=== PATIENT | female | born 1955 | race African-American/Black ===

== ENCOUNTER 2016-11-04 23:19 | Inpatient (IN) | payer OTHER ==
[~2016-11-04] VITALS: Ht 152.4 cm; Wt 95.0 kg
--- NOTE | 2016-11-05 00:04 | ERA ---
ER Documentation Chief Complaint Date/Time DATE: 11/05/16 TIME: 00:03 Chief Complaint Wheezing with SOB HPI The patient is a 61-year-old female, presenting to the ER because of shortness of breath, intermittent cough for the last 3 weeks, worse today. She denies fever, chills, neck pain, chest pain, abdominal pain, vomiting, diarrhea, constipation, dysuria. She does not smoke, drink Past medical history: Asthma, hypertension Past surgical history: 2 , bilateral feet, left shoulder ROS All systems reviewed and are negative except as per history of present illness. Allergies Allergies: Coded Allergies: No Known Allergy (Unverified , 07/29/15) PMhx/Soc History of Surgery: Yes (,lexis , foot) Hx Alcohol Use: No Hx Substance Use: No Hx Tobacco Use: No Physical Exam Vitals Vital Signs Date Time Temp Pulse Resp B/P Pulse Ox O2 Delivery O2 Flow Rate FiO2 11/05/16 00:17 52 28 99 Nasal Cannula 2.0 11/05/16 00:17 99 2.0 11/05/16 00:05 98.3 57 26 154/87 97 Room Air 11/05/16 00:05 Nasal Cannula 4 11/05/16 00:05 Nasal Cannula 4.0 11/04/16 23:54 98.3 70 26 209/82 95 Physical Exam Const: No acute distress. Head: Atraumatic. Eyes: Normal Conjunctiva. ENT: Normal External Ears, Nose and Mouth. Neck: Full range of motion. No meningismus. Resp: Bilateral expiratory wheezes, tachypnea Cardio: Regular rate and rhythm, no murmurs. Abd: Soft, non distended, normal bowel sounds, non tender. Skin: No petechiae or rashes. Back: No midline or flank tenderness. Ext: No cyanosis, or edema. Neur: Awake and alert. No focal deficit Psych: Normal Mood and Affect. Result Diagram: 11/05/16 0015 11/05/16 0015 Results 24 hrs Laboratory Tests Test 11/05/16 00:15 Anion Gap 18 Basophils # 0.010^3/ul Basophils % 0.5% Blood Urea Nitrogen 16mg/dl Calcium Level 9.7mg/dl Carbon Dioxide Level 28mmol/L Chloride Level 103mmol/L Creatinine 0.76mg/dl Eosinophils # 0.210^3/ul Eosinophils % 3.4% Glucose Level 94mg/dl Hematocrit 41.0% Hemoglobin 13.8g/dl Lymphocytes # 1.910^3/ul Lymphocytes % 26.2% Mean Corpuscular Hemoglobin 29.7pg Mean Corpuscular Hemoglobin Concent 33.7g/dl Mean Corpuscular Volume 88.2fl Mean Platelet Volume 9.4fl Monocytes # 0.410^3/ul Monocytes % 5.5% Neutrophils # 4.710^3/ul Neutrophils % 64.4% Nucleated Red Blood Cells # 0.010^3/ul Nucleated Red Blood Cells % 0.0/100WBC Platelet Count 68417^3/UL Potassium Level 4.1mmol/L Red Blood Count 4.6410^6/ul Red Cell Distribution Width 12.9% Sodium Level 145mmol/L White Blood Count 7.410^3/ul Current Medications Medications (Trade) Dose Ordered Sig/Ander Route PRN Reason Start Time Stop Time Status Last Admin Dose Admin Levalbuterol (Xopenex Neb) 3.75 mg ONCE STAT INH 11/05/16 00:12 11/05/16 00:16 DC 11/05/16 00:17 Ipratropium [place] (Atrovent 0.02% (Neb)) 1.5 mg ONCE STAT INH 11/05/16 00:12 11/05/16 00:16 DC 11/05/16 00:17 Methylprednisolone Sodium Succinate 125 mg 125 mg ONCE STAT IV 11/05/16 00:12 11/05/16 00:16 DC 11/05/16 00:20 Magnesium Sulfate 50 ml @ 25 mls/hr ONCE ONCE IVPB 11/05/16 00:30 11/05/16 02:29 11/05/16 00:24 Levofloxacin/ Dextrose (Levaquin 750 Mg/ D5W 150 ml (Pmx)) 150 ml @ 100 mls/hr ONCE ONCE IVPB 11/05/16 02:00 11/05/16 03:29 Procedures/[place] [id number] Radiology Main Line: [phone] DIAGNOSTIC IMAGING REPORT Patient: JOSSE SOUZA : 1955 Age: 61 Sex: F MR #: [id number] DOS: 11/05/16 0012 Ordering MD: MARTÍN FRANCO MD Location: E/R Room/Bed: PROCEDURE: XR Chest. CLINICAL INDICATION: Asthma TECHNIQUE: AP Portable chest. COMPARISON: No pertinent prior examinations were submitted for comparison. FINDINGS: The cardiomediastinal silhouette is normal. The lungs are clear. The osseous structures are unremarkable. IMPRESSION: No acute findings. RPTAT: HIKT .Rishabh Voss MD, Date Time Electronically viewed and signed by .Rishabh Voss MD, MD on 11/05/2016 01:00 .T/ CC: MARTÍN FRANCO MD MEDICAL MAKING DECISION: The patient is a 61-year-old female, presenting with severe acute asthma exacerbation. She was treated with Xopenex 3.75 mg and Atrovent 1.5 mg continuous nebulizer over one hour, Solu-Medrol 125 mg IV, magnesium 2 g IV, Levaquin 750 mg IV with good response. However she remains tachypneic, wheezing and is not stable to be discharged. Her blood pressure improved Critical Care: Time: 35 minutes excluding all billable procedures. Treatments/Evaluations: Close monitoring and treatment of unstable vital signs, cardiorespiratory, and neurologic status, while maintaining tight balance of fluid, respiratory, and cardiac interventions. Departure Diagnosis: Primary Impression: Acute asthma exacerbation Condition: Stable Comments I discussed the findings with the patient. I discussed the patient with the hospitalist Dr. Ayala who was made aware of the lab, the treatment, the patient condition. The patient is admitted to telemetry at 1:30 AM MARTÍN FRANCO MD Nov 05, 2016 00:03
[2016-11-05] MEDS ORDERED: METHYLPREDNISOLONE 125 MG INJ IV STA (00:12)
[2016-11-05] MEDS ORDERED: LEVALBUTEROL (NEB) 1.25 MG/0.5 ML AMP INH STA (00:12)
[2016-11-05] MEDS ORDERED: IPRATROPIUM (NEB) 0.5 MG/2.5 ML AMP INH STA (00:12)
[2016-11-05] MEDS ORDERED: MAGNESIUM SULFATE 2 GM/50 ML 50 ML IVPB ONE (00:30)
--- NOTE | 2016-11-05 01:01 | RADRPT ---
PROCEDURE: XR Chest. CLINICAL INDICATION: Asthma TECHNIQUE: AP Portable chest. COMPARISON: No pertinent prior examinations were submitted for comparison. FINDINGS: The cardiomediastinal silhouette is normal. The lungs are clear. The osseous structures are unrema rkable. IMPRESSION: No acute findings. RPTAT: HIKT .Rishabh Voss MD, MD Date Time Electronically viewed and signed by .Rishabh Voss MD, MD on 11/05/2016 01:00 .T/
[2016-11-05 01:10] LABS: POTASSIUM 4.1 mmol/L (3.5-5.1)
[2016-11-05 01:12] LABS: BASOPHILS % 0.5 % (0.0-2.0); EOSINOPHILS # 0.2 10^3/ul (0.0-0.5); EOSINOPHILS % 3.4 % (0.0-7.0); HEMOGLOBIN 13.8 g/dl (12.0-16.0); LYMPHOCYTES # 1.9 10^3/ul (0.8-2.9); LYMPHOCYTES % 26.2 % (15.0-51.0); MEAN CORPUSCULAR HEMOGLOBIN 29.7 pg (29.0-33.0); MEAN CORPUSCULAR HGB CONC 33.7 g/dl (32.0-37.0); MEAN CORPUSCULAR VOLUME 88.2 fl (82.0-101.0); MEAN PLATELET VOLUME 9.4 fl (7.4-10.4); MONOCYTE # 0.4 10^3/ul (0.3-0.9); MONOCYTES % 5.5 % (0.0-11.0); NEUTROPHIL # 4.7 10^3/ul (1.6-7.5); NEUTROPHILS % 64.4 % (39.0-77.0); PLATELET COUNT 225 10^3/UL (140-440); RED BLOOD COUNT 4.64 10^6/ul (4.20-5.40); RED CELL DISTRIBUTION WIDTH 12.9 % (11.5-14.5); UNCORRECTED WBC 7.4 10^3/ul (4.8-10.8); WHITE BLOOD COUNT 7.4 10^3/ul (4.8-10.8)
[2016-11-05 01:13] LABS: CREATININE 0.76 mg/dl (0.44-1.00)
[2016-11-05 01:14] LABS: CALCIUM 9.7 mg/dl (8.4-10.2)
[2016-11-05 01:15] LABS: CONDITION 1
[2016-11-05] MEDS ORDERED: LEVOFLOXACIN 750MG/D5W (PMX) 150 ML IVPB ONE (02:00)
--- NOTE | 2016-11-05 02:17 | HP ---
Date/Time of Note Date/Time of Note DATE: 11/05/16 TIME: 02:09 Assessment/Plan VTE Prophylaxis VTE Prophylaxis Intervention: LMWH Assessment/Plan Assessment/Plan 61 yo female with past medical history of asthma - moderate persistent, essential hypertension, obesity who presents with worsening shortness of breath. 1. Acute asthma exacerbation - moderate persistent type - will admit the patient to telemetry, continue with duonebs scheduled/prn, po steroids, IV antibiotics, if worsening - consider pulm consult/CT chest 2. Essential Hypertension - continue with home medications, prn hydralazine for SBP >160 3. Gi ppx - pepcid 4. DVT ppx - lovenox answered all of her questions. as per clinical course. this history and physical took greater then 45 minutes to complete HPI/ROS Admit Date/Time Admit Date/Time 11/05/2016, 2:09 am Hx of Present Illness 61 yo female with past medical history of asthma - moderate persistent, essential hypertension, obesity who presents with worsening shortness of breath. She states that since her trip to [place], she has been having worsening shortness of breath in Jun 2016. Otherwise in the last couple of days, her asthma has been flaring up, requiring increased scheduled use of her rescue inhaler, along with her inhaled corticosteroids. She came to the ED here at [facility] for further evaluation and treatment. She complains of pleuritic chest pain, greenish sputum production, soft stools and fevers with chills. Denies any sick contacts, nausea/vomiting, cardiac chest pain, loss of consciousness, headaches, urinary/bowel irregularities or dizziness. No other constitutional symptoms. ED course: Mag IV, duonebs, supplemental O2, IV antibiotics ROS 14 point review of systems completed, please refer to HPI for any positive findings PMH/Family/Social Past Medical History asthma Medical History: hypertension Past Surgical History , right foot surgery x 3 Past Surgical Hx: cholecystectomy Family History Significant Family History: diabetes (sister), other (sarcoidosis/emphysema - other sister) Social History Alcohol Use: occasionally Smoking Status: Former smoker Drug Use: none Exam/Review of Systems Vital Signs Vitals Vital Signs Date Time Temp Pulse Resp B/P Pulse Ox O2 Delivery O2 Flow Rate FiO2 11/05/16 00:17 52 28 99 Nasal Cannula 2.0 11/05/16 00:05 98.3 154/87 Exam Exam Gen Nena: mild to moderate respiratory distress, AAOx4 HEENT: NC/AT, PERRLA, EOMI, no pharyngeal erythema, no tonsillar exudates, no lymphadenopathy, no JVD, no carotid bruits NECK: supple, no thyromegaly THORAX: symmetrical, no obvious deformities CV: S1S2, RRR, no M/G/R Lungs: scattered end expiratory wheezing, no crackles or rhonchi appreciated Abd: soft, NT/ND, +BS, no rebound, no guarding, neg HSM, protuberant EXT: no edema, no ecchymosis, no clubbing, FROM Neuro: CN II-XII grossly intact, no focal deficits Psych: good mentation, alert and oriented, good mood and affect Skin: C/D/I Labs Result Diagram: 11/05/161411/05/1614 Medications Medications Current Medications Magnesium Sulfate 50 ml @ 25 mls/hr ONCE ONCE IVPB Last administered on t 00:24; Admin Dose 25 MLS/HR; Start 11/05/16 at 00:30; Stop 11/05/16 at 02: 29 Levofloxacin/ Dextrose (Levaquin 750 Mg/ D5W 150 ml (Pmx)) 150 ml @ 100 mls/hr ONCE ONCE IVPB ; Start 11/05/16 at 02:00; Stop 11/05/16 at 03:29 Procedures Procedures CXR IMPRESSION: No acute findings. WILMAR MCFARLAND MD Nov 05, 2016 02:17
[2016-11-05] MEDS ORDERED: LORAZEPAM 2 MG INJ IV PRN (02:30)
[2016-11-05] MEDS ORDERED: NITROGLYCERIN (SL) 0.4 MG TAB SL PRN (02:30)
[2016-11-05] MEDS ORDERED: NACL 0.9% 3 ML SYG IV SCH (02:30)
[2016-11-05] MEDS ORDERED: morphine 2 MG INJ IV PRN (02:30)
[2016-11-05] MEDS ORDERED: ALBUTEROL/IPRATROPIUM (NEB) 3 ML AMP HHN PRN (02:30)
[2016-11-05 04:15] LABS: BASOPHILS % 0.1 % (0.0-2.0); CHOL/HDL RATIO 3.8 RATIO; CONDITION 1; EOSINOPHILS % 0.2 % (0.0-7.0); HEMATOCRIT 39.8 % (37.0-47.0); HEMOGLOBIN 13.3 g/dl (12.0-16.0); LYMPHOCYTES # 0.7 10^3/ul (0.8-2.9); LYMPHOCYTES % 8.3 % (15.0-51.0); MAGNESIUM 2.3 mg/dl (1.7-2.5); MEAN CORPUSCULAR HEMOGLOBIN 29.7 pg (29.0-33.0); MEAN CORPUSCULAR HGB CONC 33.4 g/dl (32.0-37.0); MEAN CORPUSCULAR VOLUME 88.9 fl (82.0-101.0); MEAN PLATELET VOLUME 8.6 fl (7.4-10.4); MONOCYTE # 0.1 10^3/ul (0.3-0.9); MONOCYTES % 1.4 % (0.0-11.0); NEUTROPHIL # 7.2 10^3/ul (1.6-7.5); PLATELET COUNT 209 10^3/UL (140-440); RED BLOOD COUNT 4.48 10^6/ul (4.20-5.40); RED CELL DISTRIBUTION WIDTH 12.6 % (11.5-14.5)
[2016-11-05 04:36] LABS: POTASSIUM 4.2 mmol/L (3.5-5.1)
[2016-11-05 04:39] LABS: CREATININE 0.75 mg/dl (0.44-1.00)
[2016-11-05 04:40] LABS: CALCIUM 9.6 mg/dl (8.4-10.2)
[2016-11-05] MEDS: ALBUTEROL/IPRATROPIUM (NEB) 3 ML AMP HHN SCH ×5 (04:40→21:00)
[2016-11-05 04:45] LABS: THYROID STIMULATING HORMONE 0.452 MIU/L (0.465-4.680)
[2016-11-05 04:55] LABS: PLATELET ESTIMATE PLT APPEAR ADEQUATE
[2016-11-05] MEDS ORDERED: BENA1TAB13 PO (07:01)
[2016-11-05] MEDS ORDERED: IBUP-1542 PO (07:02)
[2016-11-05] MEDS ORDERED: ALBU8.5H3 INH (07:02)
[2016-11-05] MEDS ORDERED: ATEN-51 PO (07:02)
[2016-11-05] MEDS ORDERED: BECL8.7A5 INH (07:03)
[2016-11-05] MEDS ORDERED: predniSONE 20 MG TAB PO SCH (09:00)
[2016-11-05] MEDS: FAMOTIDINE 20 MG TAB PO SCH ×2 (09:17→21:50)
[2016-11-05] MEDS: ENOXAPARIN 40 MG/0.4 ML SYG SC SCH (09:18)
[2016-11-05] MEDS: hydrALAzine 20 MG INJ IV PRN ×2 (09:18→16:38)
[2016-11-05] MEDS: ACETAMINOPHEN 325 MG TAB PO PRN ×2 (11:01→21:47)
[2016-11-05 16:25] VITALS: TEMP 98.3
--- NOTE | 2016-11-05 16:41 | PN ---
Date/Time of Note Date/Time of Note DATE: 11/05/16 TIME: 16:37 Assessment/Plan VTE Prophylaxis VTE Prophylaxis Intervention: LMWH Assessment/Plan Chief Complaint/Hosp Course Assessment and plan: 1. Acute asthma exacerbation - moderate persistent type - continue with duonebs scheduled/prn, po steroids, IV antibiotics, if worsening - consider pulm consult/CT chest 2. Essential Hypertension - continue with home medications, prn hydralazine for SBP >160 3. Gi ppx - pepcid 4. DVT ppx - lovenox We will continue monitor patient closely for recommendation management treatment as clinical course Problems: Subjective 24 Hr Interval Summary Free Text/Dictation Patient complains of having mild shortness of breath and headache Denies any chest pain Exam/Review of Systems Vital Signs Vitals Vital Signs Date Time Temp Pulse Resp B/P Pulse Ox O2 Delivery O2 Flow Rate FiO2 11/05/16 09:47 73 24 97 Nasal Cannula 2.0 11/05/16 09:00 98.3 186/97 11/05/16 04:40 28 Exam General: The patient is moderately overweight, Not in acute distress. HEENT: Atraumatic, normocephalic. The pupils are equal and round . Neck: Supple with full range of motion. Chest: Normal expansion of the thorax during inspiration Lungs: Minimal wheezing right upper lung field, no wheezing or rales Heart: Normal S1-S2, Regular rhythm and rate. Abdomen: Soft , nontender, nondistended , bowel sounds are present. Extremities: Normal to inspection, no edema no cyanosis Neurologic: Normal mental status,The patient is awake, alert and oriented . Results Result Diagram: 11/05/16 0342 11/05/16 0342 Results 24 hrs Laboratory Tests Test 11/05/16 00:15 11/05/16 03:42 Anion Gap 18 H 18 H Basophils # 0.0 0.0 Basophils % 0.5 0.1 Blood Urea Nitrogen 16 15 Calcium Level 9.7 9.6 Carbon Dioxide Level 28 28 Chloride Level 103 104 Creatinine 0.76 0.75 Eosinophils # 0.2 0.0 Eosinophils % 3.4 0.2 Glucose Level 94 139 # Hematocrit 41.0 39.8 Hemoglobin 13.8 13.3 Lymphocytes # 1.9 0.7 L Lymphocytes % 26.2 8.3 L Mean Corpuscular Hemoglobin 29.7 29.7 Mean Corpuscular Hemoglobin Concent 33.7 33.4 Mean Corpuscular Volume 88.2 88.9 Mean Platelet Volume 9.4 8.6 Monocytes # 0.4 0.1 L Monocytes % 5.5 1.4 Neutrophils # 4.7 7.2 Neutrophils % 64.4 90.0 H Nucleated Red Blood Cells # 0.0 0.0 Nucleated Red Blood Cells % 0.0 0.0 Platelet Count 225 209 Potassium Level 4.1 4.2 Red Blood Count 4.64 4.48 Red Cell Distribution Width 12.9 12.6 Sodium Level 145 H 146 H White Blood Count 7.4 8.0 Cholesterol Level 169 Cholesterol/HDL Ratio 3.8 HDL Cholesterol 44 Hemoglobin A1c 6.2 H LDL Cholesterol, Calculated 110 Magnesium Level 2.3 Platelet Estimate PLT APPEAR ADEQUATE Thyroid Stimulating Hormone (TSH) 0.452 L Triglycerides Level 77 Medications Medications Current Medications Lorazepam (Ativan) 0.5 mg Q6H PRN IV ANXIETY; Start 11/05/16 at 02:30 Ondansetron HCl (Zofran Inj) 4 mg Q6H PRN IV NAUSEA AND/OR VOMITING; Start at 02:30 Nitroglycerin (Nitroglycerin (Sl Tab) 0.4 Mg) 1 tab Q5M PRN SL CHEST PAIN; Start 11/05/16 at 02:30 Acetaminophen (Tylenol Tab) 650 mg Q6H PRN PO PAIN LEVEL 1-3 OR FEVER Last administered on 11/05/16 11:01; Admin Dose 650 MG; Start 11/05/16 at 02:30 Morphine Sulfate (morphine) 2 mg Q4H PRN IV PAIN LEVEL 7-10; Start 11/05/16 at 02:30 Docusate Sodium (Colace) 100 mg Q12H PRN PO CONSTIPATION; Start 11/05/16 at 02: 30 Famotidine (Pepcid) 20 mg Q12 PO Last administered on 11/05/16 09:17; Admin Dose 20 MG; Start 11/05/16 at 09:00 Enoxaparin Sodium (Lovenox) 40 mg DAILY SC Last administered on 11/05/16 09:18 ; Admin Dose 40 MG; Start 11/05/16 at 09:00 Levofloxacin (Levaquin) 500 mg DAILY@06 PO ; Start 11/06/16 at 06:00 Hydralazine HCl (Apresoline) 10 mg Q6H PRN IV sbp >160 Last administered on t 09:18; Admin Dose 10 MG; Start 11/05/16 at 02:30 Prednisone (Prednisone) 40 mg BID PO ; Start 11/05/16 at 21:00; Status UNV Albuterol (Ventolin Hfa) 2 puff Q6H PRN INH WHEEZING AND SOB; Start 11/05/16 at 17:00; Status UNV Atenolol (Tenormin) 12.5 mg DAILY PO ; Start 11/05/16 at 17:00; Status UNV Miscellaneous Information 2 puff BID PRN INH WHEEZING AND SOB; Start 11/05/16 at 17:00; Status UNV Miscellaneous Information 0.05 tab DAILY PO ; Start 11/05/16 at 17:00; Status UNV MARJORIE ZHAO MD Nov 05, 2016 16:41
[2016-11-05] MEDS ORDERED: MOMETASONE NASAL PRN (17:00)
[2016-11-05] MEDS ORDERED: hydrALAzine 20 MG INJ IV PRN (17:00)
[2016-11-05] MEDS ORDERED: ALBUTEROL HFA 8 GM INHALER INH PRN (17:00)
[2016-11-05] MEDS: DOCUSATE SODIUM 100 MG CAP PO PRN (17:08)
[2016-11-05] MEDS: LEVOFLOXACIN 500 MG TAB PO SCH (17:08)
[2016-11-05] MEDS: ATENOLOL 25 MG TAB PO SCH (17:09)
[2016-11-05] MEDS: ONDANSETRON 4 MG INJ IV PRN ×2 (17:57→21:00)
[2016-11-05] MEDS: BENAZEPRIL 20 MG TAB PO SCH (21:50)
[2016-11-05] MEDS: predniSONE 20 MG TAB PO SCH (21:51)
[2016-11-05] MEDS: HYDROCHLOROTHIAZIDE 12.5 MG CAP PO SCH (21:51)
[2016-11-05 23:41] VITALS: PULSE 75
[2016-11-06] VITALS (10 sets, daily range): BP systolic 134–139; BP diastolic 65–74; PULSE 45–63; RESP 17–18; Ht 152.4 cm; Wt 95.0 kg
[2016-11-06] MEDS: ALBUTEROL/IPRATROPIUM (NEB) 3 ML AMP HHN SCH ×6 (00:42→20:44)
[2016-11-06] MEDS: hydrALAzine 20 MG INJ IV PRN (00:54)
[2016-11-06] MEDS: BENAZEPRIL 20 MG TAB PO SCH ×2 (08:59→20:34)
[2016-11-06] MEDS: FAMOTIDINE 20 MG TAB PO SCH ×2 (08:59→20:33)
[2016-11-06] MEDS: HYDROCHLOROTHIAZIDE 12.5 MG CAP PO SCH (08:59)
[2016-11-06] MEDS: predniSONE 20 MG TAB PO SCH ×2 (09:00→20:33)
[2016-11-06] MEDS: ATENOLOL 25 MG TAB PO SCH (09:00)
[2016-11-06] MEDS: ENOXAPARIN 40 MG/0.4 ML SYG SC SCH (09:07)
[2016-11-06] MEDS: ACETAMINOPHEN 325 MG TAB PO PRN ×2 (09:11→20:34)
[2016-11-06 10:26] LABS: BASOPHILS % 0.3 % (0.0-2.0); HEMATOCRIT 40.9 % (37.0-47.0); HEMOGLOBIN 13.7 g/dl (12.0-16.0); LYMPHOCYTES % 14.2 % (15.0-51.0); MEAN CORPUSCULAR HEMOGLOBIN 29.5 pg (29.0-33.0); MEAN CORPUSCULAR HGB CONC 33.6 g/dl (32.0-37.0); MEAN CORPUSCULAR VOLUME 87.9 fl (82.0-101.0); MEAN PLATELET VOLUME 8.9 fl (7.4-10.4); MONOCYTE # 0.8 10^3/ul (0.3-0.9); MONOCYTES % 11.6 % (0.0-11.0); NEUTROPHILS % 73.9 % (39.0-77.0); PLATELET COUNT 225 10^3/UL (140-440); RED BLOOD COUNT 4.65 10^6/ul (4.20-5.40); RED CELL DISTRIBUTION WIDTH 13.2 % (11.5-14.5); UNCORRECTED WBC 6.8 10^3/ul (4.8-10.8); WHITE BLOOD COUNT 6.8 10^3/ul (4.8-10.8)
[2016-11-06 10:29] LABS: POTASSIUM 3.9 mmol/L (3.5-5.1)
[2016-11-06 10:31] LABS: CREATININE 0.83 mg/dl (0.44-1.00)
[2016-11-06 10:32] LABS: CALCIUM 9.9 mg/dl (8.4-10.2)
[2016-11-06 10:53] LABS: CONDITION 1
[2016-11-06] MEDS ORDERED: FUROSEMIDE 40 MG INJ IV ONE (12:00)
--- NOTE | 2016-11-06 14:57 | PN ---
Date/Time of Note Date/Time of Note DATE: 11/06/16 TIME: 14:56 Assessment/Plan VTE Prophylaxis VTE Prophylaxis Intervention: LMWH Lines/Catheters IV [facility] Saline Lock Urinary Cath still in place: No Assessment/Plan Chief Complaint/Hosp Course Assessment and plan: 1. Acute asthma exacerbation - moderate persistent type - continue with duonebs scheduled/prn, po steroids, IV antibiotics, likely secondary to upper respiratory tract infection 2. Essential Hypertension - continue with home medications, prn hydralazine for SBP >160 3. Upper respiratory tract infection-on Levaquin 4. Gi ppx - pepcid 5. DVT ppx - lovenox We will continue monitor patient closely for recommendation management treatment as clinical course Problems: Subjective 24 Hr Interval Summary Free Text/Dictation Patient complains of having cough and congestion Also complaining of having lower extremity edema No nausea vomiting diarrhea Tolerating oral intake Exam/Review of Systems Vital Signs Vitals Vital Signs Date Time Temp Pulse Resp B/P Pulse Ox O2 Delivery O2 Flow Rate FiO2 11/06/16 13:17 72 22 95 Nasal Cannula 2.0 21 11/06/16 12:00 98.5 139/74 Intake and Output 11/05/16 11/05/16 11/06/16 15:00 23:00 07:00 Intake Total 500 ml Output Total 500 ml Balance 0 ml Exam General: The patient is well-developed, Not in acute distress. Frequent cough HEENT: Atraumatic, normocephalic. The pupils are equal and round . Neck: Supple with full range of motion. Chest: Normal expansion of the thorax during inspiration Lungs: Clear to auscultation bilaterally Heart: Normal S1-S2, Regular rhythm and rate. Abdomen: Soft , nontender, nondistended , bowel sounds are present. Extremities: Normal to inspection, +1 edema no cyanosis Neurologic: Normal mental status,The patient is awake, alert and oriented . Results Result Diagram: 11/06/1659 11/06/1659 Results 24 hrs Laboratory Tests Test 11/06/16 09:59 Anion Gap 20 H Basophils # 0.0 Basophils % 0.3 Blood Urea Nitrogen 14 Calcium Level 9.9 Carbon Dioxide Level 27 Chloride Level 99 Creatinine 0.83 Eosinophils # 0.0 Eosinophils % 0.0 Glucose Level 130 Hematocrit 40.9 Hemoglobin 13.7 Lymphocytes # 1.0 Lymphocytes % 14.2 L Magnesium Level 2.0 Mean Corpuscular Hemoglobin 29.5 Mean Corpuscular Hemoglobin Concent 33.6 Mean Corpuscular Volume 87.9 Mean Platelet Volume 8.9 Monocytes # 0.8 Monocytes % 11.6 H Neutrophils # 5.0 Neutrophils % 73.9 Nucleated Red Blood Cells # 0.0 Nucleated Red Blood Cells % 0.0 Platelet Count 225 Potassium Level 3.9 Red Blood Count 4.65 Red Cell Distribution Width 13.2 Sodium Level 142 White Blood Count 6.8 Medications Medications Current Medications Lorazepam (Ativan) 0.5 mg Q6H PRN IV ANXIETY Last administered on 11/05/16 18: 32; Admin Dose 0.5 MG; Start 11/05/16 at 02:30 Ondansetron HCl (Zofran Inj) 4 mg Q6H PRN IV NAUSEA AND/OR VOMITING Last administered on 11/05/16 21:00; Admin Dose 4 MG; Start 11/05/16 at 02:30 Nitroglycerin (Nitroglycerin (Sl Tab) 0.4 Mg) 1 tab Q5M PRN SL CHEST PAIN; Start 11/05/16 at 02:30 Acetaminophen (Tylenol Tab) 650 mg Q6H PRN PO PAIN LEVEL 1-3 OR FEVER Last administered on 11/06/16 09:11; Admin Dose 650 MG; Start 11/05/16 at 02:30 Morphine Sulfate (morphine) 2 mg Q4H PRN IV PAIN LEVEL 7-10; Start 11/05/16 at 02:30 Docusate Sodium (Colace) 100 mg Q12H PRN PO CONSTIPATION Last administered on 17:08; Admin Dose 100 MG; Start 11/05/16 at 02:30 Famotidine (Pepcid) 20 mg Q12 PO Last administered on 11/06/16 08:59; Admin Dose 20 MG; Start 11/05/16 at 09:00 Enoxaparin Sodium (Lovenox) 40 mg DAILY SC Last administered on 11/06/16 09:07 ; Admin Dose 40 MG; Start 11/05/16 at 09:00 Levofloxacin (Levaquin) 500 mg DAILY@06 PO Last administered on 11/05/16 17:08 ; Admin Dose 500 MG; Start 1/14/17 at 06:00 Hydralazine HCl (Apresoline) 10 mg Q6H PRN IV sbp >160 Last administered on 00:54; Admin Dose 10 MG; Start 11/05/16 at 02:30 Prednisone (Prednisone) 40 mg BID PO Last administered on 11/06/16 09:00; Admin Dose 40 MG; Start 11/05/16 at 21:00 Albuterol (Ventolin Hfa) 2 puff Q6H PRN INH WHEEZING AND SOB; Start 11/05/16 at 17:00 Mometasone Furoate (Nasonex) 1 spray DAILY PRN NASAL WHEEZING AND SOB; Start at 17:00 Benazepril HCl (Lotensin) 20 mg DAILY PO Last administered on 11/06/16 08:59; Admin Dose 20 MG; Start 11/05/16 at 17:00 Hydralazine HCl (Apresoline) 10 mg Q6H PRN IV ELEVATED BLOOD PRESSURE; Start at 17:00 Hydrochlorothiazide (Hydrochlorothiazide) 12.5 mg DAILY PO Last administered on 11/06/16 08:59; Admin Dose 12.5 MG; Start 11/05/16 at 17:00 MARJORIE ZHAO MD Nov 06, 2016 14:57
[2016-11-06] MEDS: GUAIFENESIN LA 600 MG TABSR PO SCH ×2 (16:00→20:33)
[2016-11-06] MEDS: FUROSEMIDE 20 MG INJ IV SCH (17:30)
[2016-11-06] MEDS: DOCUSATE SODIUM 100 MG CAP PO PRN (21:36)
[2016-11-07] VITALS (8 sets, daily range): BP systolic 115–128; BP diastolic 67–76; PULSE 58–69; RESP 18
[2016-11-07] MEDS: ALBUTEROL/IPRATROPIUM (NEB) 3 ML AMP HHN SCH ×5 (00:44→16:53)
[2016-11-07] MEDS: FUROSEMIDE 20 MG INJ IV SCH (08:11)
[2016-11-07] MEDS: LEVOFLOXACIN 500 MG TAB PO SCH (08:11)
[2016-11-07] MEDS: HYDROCHLOROTHIAZIDE 12.5 MG CAP PO SCH (08:12)
[2016-11-07] MEDS: predniSONE 20 MG TAB PO SCH (08:12)
[2016-11-07] MEDS: GUAIFENESIN LA 600 MG TABSR PO SCH (08:12)
[2016-11-07] MEDS: FAMOTIDINE 20 MG TAB PO SCH (08:12)
[2016-11-07] MEDS: BENAZEPRIL 20 MG TAB PO SCH (08:12)
[2016-11-07] MEDS: ENOXAPARIN 40 MG/0.4 ML SYG SC SCH (08:22)
[2016-11-07 10:27] LABS: BASOPHILS % 0.2 % (0.0-2.0); HEMATOCRIT 45.3 % (37.0-47.0); HEMOGLOBIN 15.2 g/dl (12.0-16.0); LYMPHOCYTES # 1.3 10^3/ul (0.8-2.9); LYMPHOCYTES % 22.4 % (15.0-51.0); MEAN CORPUSCULAR HEMOGLOBIN 29.6 pg (29.0-33.0); MEAN CORPUSCULAR HGB CONC 33.5 g/dl (32.0-37.0); MEAN CORPUSCULAR VOLUME 88.4 fl (82.0-101.0); MONOCYTE # 0.5 10^3/ul (0.3-0.9); MONOCYTES % 9.3 % (0.0-11.0); NEUTROPHILS % 68.1 % (39.0-77.0); PLATELET COUNT 239 10^3/UL (140-440); RED BLOOD COUNT 5.12 10^6/ul (4.20-5.40); RED CELL DISTRIBUTION WIDTH 12.9 % (11.5-14.5); UNCORRECTED WBC 5.8 10^3/ul (4.8-10.8); WHITE BLOOD COUNT 5.8 10^3/ul (4.8-10.8)
[2016-11-07 10:29] LABS: CONDITION 1
[2016-11-07 10:39] LABS: POTASSIUM 3.5 mmol/L (3.5-5.1)
[2016-11-07 10:41] LABS: CREATININE 0.85 mg/dl (0.44-1.00)
[2016-11-07 10:42] LABS: CALCIUM 9.7 mg/dl (8.4-10.2)
--- NOTE | 2016-11-07 12:43 | PDOCDIS ---
Discharge Instructions CONDITION Patient Condition: Good HOME CARE INSTRUCTIONS: Diet Instructions: Low Fat /Cholesterol ACTIVITY: Activity Restrictions: Slowly Increase Activity Rest between Activity Avoid heavy lifting FOLLOW UP/APPOINTMENTS Appointments Follow up with PCP in one week MARJORIE ZHAO MD Nov 07, 2016 12:43
[2016-11-07] MEDS ORDERED: HYDR12.53 PO (12:46)
[2016-11-07] MEDS ORDERED: POLY17PO6 PO (12:46)
[2016-11-07] MEDS ORDERED: DOCU-144 PO (12:46)
[2016-11-07] MEDS ORDERED: BENA20TA48 PO (12:46)
[2016-11-07] MEDS ORDERED: LEVO500T72 PO (12:46)
[2016-11-07] MEDS ORDERED: PRED10TA PO (12:46)
[2016-11-07] MEDS ORDERED: UDROBAC PO (12:46)
[2016-11-07] MEDS ORDERED: IPRA4AER INHALATION (12:47)
--- NOTE | 2016-11-09 06:26 | DS ---
DATE OF ADMISSION: 11/05/2016 DATE OF DISCHARGE: 11/07/2016 PROCESS PLANT OPERATOR: None. DISCHARGE DIAGNOSES: 1. Acute asthma exacerbation. 2. Essential hypertension. 3. Upper respiratory tract infection. 4. Chronic constipation. MEDICATIONS: 1. Combivent. 2. Benazepril 20 mg p.o. b.i.d. 3. Colace 100 mg p.o. daily p.r.n. 4. Robitussin-AC 5 mL p.o. q.4-6h p.r.n. 5. Hydrochlorothiazide 12.5 mg p.o. daily. 6. Levaquin 500 mg p.o. daily. 7. MiraLax 17 grams. 8. Prednisone 10 mg p.o. daily x7 days. 9. ProAir HFA. 10. Qvar 80. ALLERGIES: NO KNOWN DRUG ALLERGIES. DISPOSITION: Home. DIET: Low salt diet. ACTIVITY: As tolerated. HOSPITAL COURSE: This is a pleasant 61-year-old female with past medical history of asthma, hyperte nsion, moderate obesity, who presented to [facility] on 11/05/2016 secondary to morel ving shortness of breath. She stated that she had recent trip to [place]. She was having worsening shortness of breath in June of 2016. Otherwise, the last couple days the patient's asthma has been flaring up, requiring increased scheduled dose of rescue inhaler along with inhaled corticoster oids which did not relieve her shortness of breath. Therefore, she presented to [facility] Emergency Room where she was found to have wheezing, chest x-ray was obtained which showed no acute findings. The patient's vitals was found to be hypoxic with oxygen saturation 95% on 4 liters. Al so, the patient was found to have hypertension urgency. The patient's home medication was restarted such as atenolol and benazepril, although status post placed the patient on Atenolol. The patient became mildly bradycardic with systolic blood pressure decreasing between 45, 49; therefore, atenolo l was discontinued. The patient was placed on benazepril and hydrochlorothiazide and also the patie nt was found to have some fluid overload, therefore was placed on Lasix. At this time, the patient' s diuresis has been sufficient. At this time, the patient will only be discharged home on her hydro chlorothiazide. Patient also has been complaining of having constipation; therefore was placed on C olace. Having ____, also will place the patient on MiraLax. Regarding her asthma exacerbation, it is likely secondary to upper respiratory tract infection. Patient was placed on Levaquin, breathing treatment and prednisone. Her breathing status has been improving significantly. Her cough was nagy ppressed on Robitussin this morning. This morning the patient's oxygen saturation is stable on room air. Oxygen saturation 96% to 98%. The patient denies having any chest pain, shortness of breath, nausea, vomiting, diarrhea. Has been able to tolerate oral intake. At this time, patient is medic ally stable to be discharged home with a close followup with her primary care physician as rosetta beck. Dictated By: MARJORIE GUZMAN/RAJI Conf#: [id number] DID#: [id number]
== END 2016-11-07 18:44 | disposition home or self-care (01) | DRG 203 ==
LOC: E/R 23:19 → MS4 11-05 23:46
PROVIDERS: ADMIT Student in an Organized Health Care Education/Training Program; ATTEND Student in an Organized Health Care Education/Training Program
DX: J45.901 Unspecified asthma with (acute) exacerbation (principal); I10 Essential (primary) hypertension; J06.9 Acute upper respiratory infection, unspecified; K59.00 Constipation, unspecified
CPT/HCPCS: 71010; 80048; 80061; 83036; 83735; 84443; 85025; 87400; 94640; 94644; 94664; 96372; 96374; 96375; 96376; J1940; J0360; J1650; J1956; J2060; J2405; J2930; J3475; J7512

== ENCOUNTER 2017-11-24 11:07 | Emergency (ER) | END 2017-11-24 13:33 | disposition home or self-care (01) ==